=== PATIENT | female | born 1985 | race Caucasian/White ===

== ENCOUNTER 2021-05-06 05:55 | Inpatient (IN) ==
[2021-05-06] MEDS ORDERED: MEPERIDINE 50 MG/1 ML VIAL IV PRN (06:04)
[2021-05-06] MEDS ORDERED: ONDANSETRON 4 MG/2 ML VIAL IV PRN ×2 (06:04→15:42)
[2021-05-06] MEDS ORDERED: BUTORPHANOL 2 MG/ML VIAL IV PRN (06:04)
[2021-05-06] MEDS: LACTATED RINGERS 1,000 ML IV SCH ×3 (06:23→14:14)
[2021-05-06 06:26] LABS: Basophils % 0.4 % (0.0-0.8); Eosinophils # 0.1 10*3/uL (0.0-0.87); Eosinophils % 0.8 % (0.00-10.9); Hematocrit 38.2 VOL% (35.7-47.0); Hemoglobin 13.9 GM/DL (12.0-16.0); Immature Granulocytes % 0.7 %; Immature Granulocytes Absolute 0.06 #; Lymphocytes # 1.7 10*3/uL (1.4-4.0); Mean Corpuscular HGB Conc 36.4 GM/DL (32-36); Mean Corpuscular Volume 102.1 FL (87-102); Mean Platelet Volume 11.4 FL (9.6-12.0); Monocytes % 7.2 % (1.7-12.7); Neutrophils % 70.9 % (38.7-73.9); Platelet Count 152 T/CUMM (130-400); Red Blood Count 3.74 MC/CUMM (3.8-5.5); Red Cell Distribution Width 14.7 % (9.3-17.3); White Blood Count 8.4 T/CUMM (4-12)
[2021-05-06 06:45] LABS: Albumin 2.8 G/DL (3.4-5.0); Bilirubin,Total 1.1 MG/DL (0.20-1.00); Calcium 8.4 MG/DL (8.5-10.1); Osmolality,Calculated 273.5 MOS/KG (273-304); Potassium 3.9 MMOL/L (3.5-5.1); Total Protein 6.2 G/DL (6.4-8.2)
[2021-05-06] MEDS ORDERED: OXYTOCIN/LR 20 UNIT/1,000 ML BAG IV SCH (07:00)
[2021-05-06 07:57] LABS: Macrocytosis Slight; Platelet Estimate Adequate; Polychromasia Slight
[2021-05-06] MEDS ORDERED: PROMETHAZINE 25 MG/1 ML VIAL IM ONE (11:07)
[2021-05-06] MEDS ORDERED: NALOXONE 0.4 MG/ML VIAL IV PRN (11:07)
[2021-05-06] MEDS ORDERED: LACTATED RINGERS 1,000 ML IV ONE (11:07)
[2021-05-06] MEDS ORDERED: diphenhydrAMINE 50 MG/1 ML VIAL IV PRN ×2 (11:07)
[2021-05-06] MEDS ORDERED: hydrOXYzine HCL 25 MG/1 ML VIAL IM PRN (11:07)
[2021-05-06] MEDS ORDERED: FAMOTIDINE 20 MG/2 ML VIAL IV ONE (11:07)
[2021-05-06] MEDS ORDERED: CITRIC ACID/SODIUM CITRATE 30 ML UDCUP PO ONE (11:07)
[2021-05-06] MEDS ORDERED: ePHEDrine 50 MG/ML VIAL IV PRN (11:07)
[2021-05-06] MEDS ORDERED: fentaNYL 2 MCG/ROPIV 0.2% EPID 100 ML EPIDURAL SCH (11:30)
[2021-05-06 13:16] LABS: Bacteria,Urine Occasional /HPF (Few); Bilirubin,Urine Negative (Negative); Blood, Urine Negative (Negative); Glucose,Urine (UA) Negative (Negative); Ketones,Urine 80 mg/dL (Negative); Mucus,Urine Occasional /LPF (Occasional); Nitrite,Urine Negative (Negative); Protein,Urine Negative; RBC,Urine 1 /HPF (0-4); Urine Appearance CLEAR (Clear); Urine Color Yellow (Yellow); Urine Specific Gravity 1.014 (1.001-1.035); Urine Urobilinogen < 2.0 EU/DL (0.2-1.0)
[2021-05-06] MEDS ORDERED: miSOPROStoL 200 MCG TABLET ONE (15:00)
[2021-05-06] MEDS ORDERED: TRANEXAMIC ACID 1,000 MG/10 ML VIAL ONE (15:00)
[2021-05-06] MEDS ORDERED: OXYTOCIN/LR 20 UNIT/1,000 ML BAG IV ONE ×2 (15:00→15:42)
[2021-05-06] MEDS ORDERED: CARBOPROST TROMETHAMINE 250 MCG/ML AMP IM ONE (15:01)
[2021-05-06] MEDS ORDERED: METHYLERGONOVINE 0.2 MG/1 ML AMP ONE (15:01)
[2021-05-06] MEDS ORDERED: WITCH HAZEL PADS 100/JAR TOP PRN (15:42)
[2021-05-06] MEDS ORDERED: BISACODYL 10 MG SUPP RECTAL PRN (15:42)
[2021-05-06] MEDS ORDERED: RHO(D) IMMUNE GLOBULIN 300 MCG SYRINGE IM ONE (15:42)
[2021-05-06] MEDS ORDERED: BENZOCAINE 20%/MENTHOL 0.5% SPRAY 56 GM CAN TOP PRN (15:42)
[2021-05-06] MEDS ORDERED: HYDROCORTISONE 2.5% RECTAL CREAM 30 GM TUBE TOP PRN (15:42)
[2021-05-06] MEDS ORDERED: oxyCODONE/ACETAMINOPHEN 5-325 MG TABLET PO PRN ×2 (15:42)
[2021-05-06] MEDS ORDERED: LANOLIN 50% CREAM 0.3 OZ TUBE TOP PRN (15:42)
[2021-05-06] MEDS ORDERED: DIPH/TET/ACEL PERT BOOSTER VACCINE 0.5 ML VIAL IM ONE (15:42)
[2021-05-06] MEDS ORDERED: ACETAMINOPHEN 325 MG TABLET PO PRN (15:42)
[2021-05-06] MEDS ORDERED: MEASLES/MUMPS/RUBELLA VACCINE 0.5 ML VIAL SUBCUT ONE (15:42)
[2021-05-06 15:47] LABS: Cord Arterial Blood HCO3 19.1 MMOL/L
[2021-05-06 15:50] LABS: Cord Venous Blood HCO3 21.7 MMOL/L; Cord Venous Blood PCO2 40.9 MMHG; Cord Venous Blood PO2 28.6
[2021-05-06] MEDS: IBUPROFEN 800 MG TABLET PO PRN (20:51)
[2021-05-06] MEDS: DOCUSATE SODIUM 100 MG CAPSULE PO SCH (22:45)
[2021-05-07] MEDS: IBUPROFEN 800 MG TABLET PO PRN ×2 (02:05→16:47)
[2021-05-07 04:40] LABS: Basophils % 0.3 % (0.0-0.8); Eosinophils # 0.1 10*3/uL (0.0-0.87); Eosinophils % 0.8 % (0.00-10.9); Hematocrit 35.7 VOL% (35.7-47.0); Hemoglobin 12.7 GM/DL (12.0-16.0); Immature Granulocytes % 0.7 %; Immature Granulocytes Absolute 0.09 #; Lymphocytes # 2.1 10*3/uL (1.4-4.0); Lymphocytes % 15.3 % (21.3-54.2); Mean Corpuscular HGB Conc 35.6 GM/DL (32-36); Mean Corpuscular Volume 103.8 FL (87-102); Mean Platelet Volume 11.4 FL (9.6-12.0); Monocytes % 7.4 % (1.7-12.7); Neutrophils % 75.5 % (38.7-73.9); Platelet Count 125 T/CUMM (130-400); Red Blood Count 3.44 MC/CUMM (3.8-5.5); Red Cell Distribution Width 14.8 % (9.3-17.3); White Blood Count 13.8 T/CUMM (4-12)
[2021-05-07 06:41] LABS: Spherocytes Few
[2021-05-07 06:42] LABS: Platelet Estimate Decreased; Polychromasia 1+
[2021-05-07] MEDS: DOCUSATE SODIUM 100 MG CAPSULE PO SCH ×2 (09:17→21:23)
[2021-05-08 08:04] VITALS: BP 113/68
[2021-05-08] MEDS: DOCUSATE SODIUM 100 MG CAPSULE PO SCH (10:02)
== END 2021-05-08 11:30 | disposition home or self-care (01) | DRG 807 ==
LOC: N.LD 05:55 → N.OB 18:05
PROVIDERS: ADMIT Obstetrics & Gynecology; ATTEND Obstetrics & Gynecology